=== PATIENT | female | born 2000 | race Caucasian/White ===

== ENCOUNTER 2021-06-27 14:46 | Outpatient (REF) | payer BC, SELFPAY ==
--- NOTE | ~2021-06-27 | XR_ITS ---
EXAMINATION: XR CHEST CLINICAL INFORMATION: Chronic cough. COMPARISON: None TECHNIQUE: 2 views of the chest were obtained. FINDINGS: No significant abnormality is noted involving the heart, lungs, mediastinum, bony thorax or soft tissues. XR/XR chest 2V IMPRESSION: Unremarkable examination.
== END 2021-06-27 14:47 | disposition home or self-care (01) ==
LOC: HO.XRAY 14:46
PROVIDERS: PCP Pediatrics; Visit Provider Otolaryngology
DX: J40 Bronchitis, not specified as acute or chronic (principal)
CPT/HCPCS: 71046

== ENCOUNTER 2023-01-25 11:52 | Outpatient (REF) | payer BC, SELFPAY ==
--- NOTE | ~2023-01-25 | XR_ITS ---
EXAMINATION: XR CHEST CLINICAL INFORMATION: Chronic cough COMPARISON: Previous chest x-ray June 2021 TECHNIQUE: 2 views of the chest were obtained. FINDINGS: No significant abnormality is noted involving the heart, lungs, mediastinum, bony thorax or soft tissues. XR/XR chest 2V IMPRESSION: Unremarkable examination.
--- NOTE | ~2023-01-25 | XR_ITS ---
EXAMINATION: XR SINUSES CLINICAL INFORMATION: Recurrent sinusitis COMPARISON: None available. TECHNIQUE: 3 views of the sinuses were obtained. FINDINGS: Paranasal sinuses appear clear without air-fluid levels. No fractures are identified. No radiodense foreign bodies. XR/XR sinus min 3V IMPRESSION: Unremarkable examination.
== END 2023-01-25 11:53 | disposition home or self-care (01) ==
LOC: HO.XRAY 11:52
PROVIDERS: Visit Provider Otolaryngology
DX: R05.3 Chronic cough (principal); J32.8 Other chronic sinusitis
CPT/HCPCS: 70220; 71046

== ENCOUNTER 2023-09-06 12:10 | Outpatient (REF) | payer BC, SELFPAY ==
--- NOTE | ~2023-09-06 | XR_ITS ---
EXAMINATION: XR ABDOMEN KUB CLINICAL INDICATION: Right flank pain. COMPARISON: None available. TECHNIQUE: AP view of the abdomen. FINDINGS: Imaged lung bases are clear. The bowel gas pattern is nonobstructive. No abnormally dilated loops of small or large bowel. Moderate retained stool in the colon. Intrauterine device projects over the pelvis. 3 mm calcification in the right hemipelvis possibly in the vicinity of the distal right ureter. XR/XR KUB IMPRESSION: Possible 3 mm right distal ureteral calculus.
== END 2023-09-06 12:11 | disposition home or self-care (01) ==
LOC: HO.HHCX 12:10
PROVIDERS: Visit Provider Internal Medicine
DX: R10.9 Unspecified abdominal pain (principal)
CPT/HCPCS: 74018